=== PATIENT | female | born 1970 | race American Indian/Alaskan Native ===

== ENCOUNTER 2021-02-24 18:46 | Emergency (ER) | payer SELFPAY ==
[2021-02-24 19:17] VITALS: BP 148/78
[2021-02-24] MEDS ORDERED: ONDANSETRON 4 MG ODT TAB PO ONE (19:34)
[2021-02-24] MEDS ORDERED: HYDROcodone/ACETAMINOPHEN 5-325 MG TAB PO ONE (19:34)
[2021-02-24] MEDS ORDERED: IBUPROFEN 600 MG TAB PO ONE (19:34)
--- NOTE | 2021-02-24 20:20 | Emergency Department Report ---
ED Lower Extremity HPI - General Chief Complaint: Extremity Injury, Lower Stated Complaint: LEFT FOOT SWOLLEN/ CAN'T WALK ON IT Source: patient Mode of arrival: Ambulatory Limitations: Physical Limitation - History of Present Illness Initial Comments: Patient is a 50-year-old -Vin[place] female with past medical history of asthma who presents to the ED with complaint of acute onset persistent severe dorsal left lateral foot pain and swelling as well as left ankle pain after she accidentally dropped a heavy box onto her left foot over 10 hours ago at work. Patient states that initially the pain was mild but subsequently the pain got worse. Patient states that she is unable to bear weight on the left foot because of worsening pain. Patient denies dizziness, syncope, numbness and tingling or weakness of left foot, fall, nausea and vomiting, chest pain or shortness of breath and back pain. MD Complaint: ankle injury (Left), foot injury (Left) -: Sudden, hour(s) (Over 10 hours ago) Injury: Ankle: Left (Left ankle pain), Foot: Left (Dorsal lateral left foot pain) Type of Injury: blunt Place: work Severity: severe Severity scale (0 -10): 9 Improves With: nothing Worsens With: weight bearing, movement, palpation Context: direct blow Associated Symptoms: swelling, able to partially bear weight. denies: snap/pop sensation, numbness, tingling, unable to bear weight - Related Data Previous Rx's Medication Instructions Recorded Last Taken Type Ibuprofen [Motrin] 600 mg PO Q8H PRN #30 tablet 02/24/21 Unknown Rx traMADoL [Ultram] 50 mg PO Q6HR PRN #12 tablet 02/24/21 Unknown Rx Allergies Allergy/AdvReac Type Severity Reaction Status Date / Time No Known Allergies Allergy Unverified 02/24/21 19:17 ED Review of Systems ROS: Stated complaint: LEFT FOOT SWOLLEN/ CAN'T WALK ON IT Other details as noted in HPI Constitutional: denies: chills, fever Eyes: denies: eye pain, eye discharge, vision change ENT: denies: ear pain, throat pain Respiratory: denies: cough, shortness of breath, wheezing Cardiovascular: denies: chest pain, palpitations Endocrine: no symptoms reported Gastrointestinal: denies: abdominal pain, nausea, diarrhea Genitourinary: denies: urgency, dysuria, discharge Musculoskeletal: joint swelling (Left foot and ankle swelling), arthralgia (Dorsolateral left foot pain with mild swelling). denies: back pain, myalgia Skin: denies: rash, lesions Neurological: denies: headache, weakness, paresthesias Psychiatric: denies: anxiety, depression Hematological/Lymphatic: denies: easy bleeding, easy bruising ED Past Medical Hx - Past Medical History Previous Medical History?: Yes Hx Asthma: Yes - Surgical History Past Surgical History?: No - Social History Smoking Status: Never Smoker Substance Use Type: Marijuana - Medications Home Medications: Home Medications Medication Instructions Recorded Confirmed Last Taken Type Ibuprofen [Motrin] 600 mg PO Q8H PRN #30 tablet 02/24/21 Unknown Rx traMADoL [Ultram] 50 mg PO Q6HR PRN #12 tablet 02/24/21 Unknown Rx ED Physical Exam - General Limitations: Physical Limitation General appearance: alert, in no apparent distress - Head Head exam: Present: atraumatic, normocephalic, normal inspection - Eye Eye exam: Present: normal appearance, PERRL, EOMI Pupils: Present: normal accommodation - ENT ENT exam: Present: normal exam, normal orophraynx, mucous membranes moist, TM's normal bilaterally, normal external ear exam - Neck Neck exam: Present: normal inspection, full ROM - Respiratory Respiratory exam: Present: normal lung sounds bilaterally. Absent: respiratory distress, wheezes, rales, rhonchi, chest wall tenderness, accessory muscle use, decreased breath sounds - Cardiovascular Cardiovascular Exam: Present: regular rate, normal rhythm, normal heart sounds. Absent: systolic murmur, diastolic murmur, rubs, gallop - GI/Abdominal GI/Abdominal exam: Present: soft, normal bowel sounds. Absent: tenderness, guarding, rebound, hyperactive bowel sounds, hypoactive bowel sounds, organomegaly - Extremities Exam Extremities exam: Present: normal inspection, tenderness (Palpable severe dorsal lateral left foot and left ankle tenderness with mild swelling and limited range of motion due to pain), normal capillary refill, joint swelling (Mild swelling dorsal left foot and ankle). Absent: full ROM (Limited range of motion of left ankle and foot due to pain), pedal edema, calf tenderness - Back Exam Back exam: Present: normal inspection, full ROM. Absent: tenderness, CVA tenderness (R), CVA tenderness (L), muscle spasm, paraspinal tenderness, vertebral tenderness - Neurological Exam Neurological exam: Present: alert, oriented X3, CN II-XII intact, normal gait, reflexes normal - Psychiatric Psychiatric exam: Present: normal affect, normal mood - Skin Skin exam: Present: warm, dry, intact, normal color. Absent: rash ED Course Vital Signs 02/24/21 19:15 Temperature 98.5 F Pulse Rate 66 Respiratory 18 Rate Blood Pressure 148/78 O2 Sat by Pulse 100 Oximetry ED Lower Extremity MDM - Radiology Data Radiology results: report reviewed, image reviewed [facility] [address] [place] [address] XRay Report Signed Patient: EASTON CARR MR#: [id number] : 1970 Acct:[id number] Age/Sex: 50 / F ADM Date: 02/24/21 Loc: ED Attending Dr: Ordering Physician: OZZIE ENGEL Date of Service: 02/24/21 Procedure(s): XR ankle 3+V LT Accession Number(s): [id number] cc: OZZIE ENGEL Fluoro Time In Minutes: XR ankle 3+V LT INDICATION / CLINICAL INFORMATION: Traumatic injury - pain. COMPARISON: None available. FINDINGS: BONES/JOINT(S): No acute fracture or subluxation. No significant degenerative changes. SOFT TISSUES: No significant abnormality. ADDITIONAL FINDINGS: None. Signer Name: Wilber Luther MD Signed: 02/24/2021 8:18 PM Workstation Name: [id number] Transcribed By: NICK Dictated By: Wilber Luther MD Electronically Authenticated By: Wilber Luther MD Signed Date/Time: 02/24/212017 DD/ 17 TD/TT: [facility] [address] [place] [address] XRay Report Signed Patient: EASTON CARR MR#: [id number] : 1970 Acct:[id number] Age/Sex: 50 / F ADM Date: 02/24/21 Loc: ED Attending Dr: Ordering Physician: OZZIE LEOS Date of Service: 02/24/21 Procedure(s): XR foot 3+V LT Accession Number(s): [id number] cc: OZZIE LEOS Fluoro Time In Minutes: XR foot 3+V LT INDICATION / CLINICAL INFORMATION: L foot pain. COMPARISON: None available. FINDINGS: BONES/JOINT(S): No acute fracture or subluxation. No significant degenerative changes. SOFT TISSUES: No significant abnormality. ADDITIONAL FINDINGS: None. Signer Name: Wilber Luther MD Signed: 02/24/2021 8:18 PM Workstation Name: [id number] Transcribed By: NICK Dictated By: Wilber Luther MD Electronically Authenticated By: Wilber Luther MD Signed Date/Time: 02/24/212017 DD/ 17 TD/TT: - Medical Decision Making This is a 50-year-old -[place]in[place] female with past medical history of asthma who presents to the ED with complaint of acute onset persistent severe dorsal left lateral foot pain and swelling as well as left ankle pain after she accidentally dropped a heavy box onto her left foot over 10 hours ago at work. Patient states that initially the pain was mild but subsequently the pain got worse. Patient states that she is unable to bear weight on the left foot because of worsening pain. In the ED, patient is alert and oriented x3 and is not in any distress but appears to be in pain. Patient was treated for pain in the ED and left foot x-ray showed no acute fractures and subluxations. Left ankle x-ray also showed no acute fractures and subluxations. The patient left foot and ankle was splinted with postop shoe and Kar wrap and patient discharged home on pain medications, and advised to follow-up with her primary care physician in 5 to 7 days for reevaluation. Patient was advised return to the ED immediately if symptoms get worse. - Differential Diagnosis Foot fracture; ankle fracture; ankle sprain; foot contusion Critical care attestation.: If time is entered above; I have spent that time in minutes in the direct care of this critically ill patient, excluding procedure time. ED Disposition Clinical Impression: Contusion of left foot including toes Qualifiers: Encounter type: initial encounter Qualified Code(s): S90.32XA - Contusion of left foot, initial encounter Sprain of left foot Qualifiers: Encounter type: initial encounter Qualified Code(s): S93.602A - Unspecified sprain of left foot, initial encounter Severe sprain of left ankle Qualifiers: Encounter type: initial encounter Qualified Code(s): S93.402A - Sprain of unspecified ligament of left ankle, initial encounter Disposition: TO HOME OR SELFCARE Is pt being admited?: No Does the pt Need Aspirin: No Condition: Stable Instructions: Ankle Sprain, [id number], Foot Contusion, [id number], Crush Injury of the Foot, [id number] Additional Instructions: The left foot and ankle x-ray showed no acute fractures and subluxations. Therefore take medications with food, drink plenty of fluids and follow-up with your primary care physician in 5 to 7 days for reevaluation. Return to the ED immediately if symptoms get worse. Prescriptions: Ibuprofen [Motrin] 600 mg PO Q8H PRN #30 tablet PRN Reason: Pain traMADoL [Ultram] 50 mg PO Q6HR PRN #12 tablet PRN Reason: Pain Referrals: [facility] [Provider Group] - 7-10 days Forms: Work/School Release Form(ED) Time of Disposition: 20:21 Print Language: MAURITIAN
== END 2021-02-24 20:42 | disposition home or self-care (01) ==
LOC: ED 18:46
DX: S93.402A Sprain of unspecified ligament of left ankle, initial encounter (principal); S93.602A Unspecified sprain of left foot, initial encounter; J45.909 Unspecified asthma, uncomplicated; F12.90 Cannabis use, unspecified, uncomplicated; Z72.89 Other problems related to lifestyle; Z79.899 Other long term (current) drug therapy; X50.1XXA Overexertion from prolonged static or awkward postures, initial encounter; Y93.89 Activity, other specified; Y92.89 Other specified places as the place of occurrence of the external cause; Y99.8 Other external cause status
CPT/HCPCS: 99283; Q0162